=== PATIENT | male | born 1990 | race Asian ===

== ENCOUNTER → 2017-01-12 13:22 | Emergency (ER) | payer BC ==
[~2017-01-12 13:22] MED LIST: Famotidine IV* 10 MG/ML 2 ML (20 mg) IV ONE; Famotidine TAB* 20 MG PO ONE; diPHENhydraMINE PO* 50 MG PO ONE; methylPREDNISolone SOD SUCC* 125 MG 2 ML VIAL IV ONE; predniSONE TAB* 20 MG PO ONE
[2017-01-12] MEDS: NS 0.9% 1000 ML* 2,000 ML IV ONE ×2 (13:22→14:41)
--- NOTE | 2017-01-12 16:07 | ED ---
Geovanny Sesay Billy, scribed for Matty Mijares MD on 01/12/17 at 1342 . Allergic Reaction/Systemic - HPI Summary HPI Summary: Patient is a 26 year-old male BIBA to [facility] for evaluation of an allergic reaction. Patient has a known allergy to wheat, and he believes he may have accidentally eaten wheat during breakfast this morning. Patient reports abdominal pain and had an episode of nausea/vomiting. He had palpitations and shortness of breath at onset, but he was given 50mg Benadryl by EMS which have improved these symptoms. He denies any shortness of breath or difficult swallowing at this time. He is, however, still teary-eyed and has diffuse hives. - History of Current Complaint Chief Complaint: EDAllergicReaction Time Seen by Provider: 01/12/17 13:25 Hx Obtained From: Patient Onset/Duration: Gradual Onset, Started hours ago Timing: Constant Severity Initially: Moderate Severity Currently: Moderate Location: Diffuse Character: Hives Aggravating Factor(s): Nothing Alleviating Factor(s): Antihistamines Associated Signs And Symptoms: Positive: Abdominal Pain, Nausea, Vomiting. Negative: Chest Pain, Difficulty Breathing, Throat Tightening - Allergies/Home Medications Allergies/Adverse Reactions: Allergies Allergy/AdvReac Type Severity Reaction Status Date / Time Buckwheat Allergy Hives/Diff. Verified 01/12/17 13:27 Breathing/I tching crab Allergy Hives/Diff. Uncoded 01/12/17 13:27 Breathing/I tching dust mite Allergy Hives/Diff. Uncoded 01/12/17 13:27 Breathing/I tching shrimp Allergy Hives/Diff. Uncoded 01/12/17 13:27 Breathing/I tching wheat Allergy Hives/Diff. Uncoded 01/12/17 13:27 Breathing/I tching PMH/Surg Hx/FS Hx/Imm Hx Endocrine/Hematology History: Denies: Hx Diabetes Cardiovascular History: Denies: Hx Myocardial Infarction Infectious Disease History: No Infectious Disease History: Reports: Traveled Outside the [place] in Last 30 Days - [place] - Family History Known Family History: Positive: Hypertension - Social History Occupation: Student Alcohol Use: None Hx Substance Use: No Substance Use Type: Reports: None Hx Tobacco Use: No Smoking Status (MU): Never Smoked Tobacco Review of Systems Positive: Palpitations. Negative: Chest Pain Positive: Shortness Of Breath Positive: Vomiting, Nausea Positive: Other - hives All Other Systems Reviewed And Are Negative: Yes Physical Exam Triage Information Reviewed: Yes Vital Signs On Initial Exam: Initial Vitals Temp Pulse Resp BP Pulse Ox 98.3 F 90 18 113/87 99 01/12/17 13:29 01/12/17 13:29 01/12/17 13:29 01/12/17 13:29 01/12/17 13:29 Vital Signs Reviewed: Yes Appearance: Positive: Well-Appearing, Pain Distress - Mild distress, shaking. Skin: Positive: Warm, Dry, Other - Diffuse hives. Eyes: Positive: EOMI, ROSAMARIA ENT: Positive: Normal ENT inspection, Other - Throat/airway patent. Neck: Positive: Supple, Nontender Respiratory/Lung Sounds: Positive: Clear to Auscultation, Breath Sounds Present , Other - Patient is coughing. Cardiovascular: Positive: RRR Abdomen Description: Positive: Nontender, Soft Musculoskeletal: Positive: Normal, Strength/ROM Intact Neurological: Positive: Normal, Sensory/Motor Intact, Alert, Oriented to Person Place, Time Psychiatric: Positive: Affect/Mood Appropriate Diagnostics - Vital Signs Vital Signs Temp Pulse Resp BP Pulse Ox 01/12/17 13:29 98.3 F 90 18 113/87 99 - Laboratory Lab Statement: Any lab studies that have been ordered have been reviewed, and results considered in the medical decision making process. Re-Evaluation - Re-Evaluation First Eval Re-Evaluation Time: 15:50 Change: Improved Comment: Patient is significantly improved. Asymptomatic at this time. Allergic Reaction Course/Dx - Course Course Of Treatment: NO CRITICAL CARE TIME Assessment/Plan: IMPROVED IN ED. DISCHARGE HOME STABLE. - Diagnoses Provider Diagnoses: Allergic reaction Discharge - Discharge Plan Condition: Stable Disposition: HOME Prescriptions: Famotidine TAB* [Pepcid 20 MG TAB*] 20 mg PO BID PRN #6 tab PRN Reason: Allergy Symptoms predniSONE TAB* [Deltasone TAB*] 40 mg PO DAILY PRN #6 tab PRN Reason: Allergy Symptoms Patient Education Materials: General Allergic Reaction (ED) Referrals: [facility] [facility] [Outside] Additional Instructions: FOLLOW UP WITH YOUR DOCTOR. TAKE BENADRYL 50MG EVERY 6 HOURS NEEDED. TAKE PEPCID 20MG TWICE A DAY NEEDED. TAKE THE PREDNISONE DIRECTED NEEDED. RETURN TO THE EMERGENCY DEPARTMENT FOR ANY WORSENING OF YOUR CONDITION OR QUESTIONS OR CONCERNS. The documentation as recorded by the Geovanny llamas Billy accurately reflects the service I personally performed and the decisions made by me, Matty Mijares MD.
[2017-01-12 16:17] VITALS: BP 126/72
== END | disposition home or self-care (01) ==
LOC: ED 13:22
DX: T78.40XA Allergy, unspecified, initial encounter (principal); R11.2 Nausea with vomiting, unspecified; R10.9 Unspecified abdominal pain; R00.2 Palpitations; R06.02 Shortness of breath; L50.9 Urticaria, unspecified; X58.XXXA Exposure to other specified factors, initial encounter; Y92.9 Unspecified place or not applicable
CPT/HCPCS: 96374; 96375; 99283; A9270-GY; J7512